=== PATIENT | female | born 1960 | race Caucasian/White ===

== ENCOUNTER 2017-06-02 11:10 | Observation (INO) | payer MEDICARE, OTHER ==
[~2017-06-02] VITALS: Ht 170.2 cm; Wt 62.7 kg
[~2017-06-02 11:10] MED LIST: ACLI400A2 INH; ALBU2.5V NPPB; ALBU8.5H5 INH; ALPR1TAB2 PO; ASPI-621 PO; ATOR40TA PO; BENZ1TAB61 PO; BUDE10.22 INH; CALC0.25 PO; CEFD300C37 PO; CEPH-368 PO; CHOL2000 PO; CIPR500T87 PO; CLON0.1T PO; CLON0.5T PO; CLOP75TA PO; CLOP75TA52 PO; CYCL-259 PO; CYCL5TAB10 PO; DEXA0.5T PO; DIAZ2TAB3 PO; DIAZ5TAB PO; DIAZ5TAB4 PO; DOCU-131 PO; DOCU100C24 PO; ETID400T2 PO; FLUD0.1T PO; FLUT1DIS3 INH; GABA300C10 PO; IPRA3AMP NEB; LEVO175T2 PO; LEVO175T5 PO; LEVO175T6 PO; LEVO25TA2 PO; LEVO500T47 PO; LIOT25TA10 PO; LIOT25TA3 PO; LIOT5TAB3 PO; LOVA20TA2 PO; METH4TAB PO; MIDO10TA PO; MIDO5TAB PO; MIRT15TA PO; MIRT15TA6 PO; MORP20CA18 PO; MORP30TA PO; MORP30TA81 PO; NICO-486 TD; OLAN20TA3 PO; OLAN20TA7 PO; OXYC-306 PO; OXYC-307 PO; OXYC1TAB8 PO; PALI6TAB3 PO; PANT40TA5 PO; PARO10TA3 PO; PARO40TA61 PO; PAXIL PO; PREG100C PO; RISP1TAB3 PO; SENN-52 PO; SERT25TA3 PO; SUCR1TAB PO; ZOLP10TA3 PO; [UNRECOGNIZED DRUG - CODE] INJ; [UNRECOGNIZED DRUG - OTHER] PO
[2017-06-02] MEDS ORDERED: GADOBUTROL 7.5 MMOL/7.5 ML PFS ONE (11:15)
[2017-06-02] MEDS ORDERED: MIDO5TAB PO (11:29)
[2017-06-02] MEDS ORDERED: ALBU8.5H8 INH (11:31)
[2017-06-02] MEDS ORDERED: SODIUM CHLORIDE 0.9% 1,000 ML IV ONE (11:37)
[2017-06-02 11:51] LABS: BASOPHILS # (AUTO) 0.03 x10^3/uL (0-0.1); BASOPHILS % (AUTO) 0 % (0-1); EOSINOPHILS # (AUTO) 0.13 x10^3/uL (0-0.4); EOSINOPHILS % (AUTO) 2 % (1-7); LYMPHOCYTES # (AUTO) 2.17 x10^3/uL (1-3.4); LYMPHOCYTES % (AUTO) 33 % (22-44); MD NO; MEAN CORPUSCULAR HEMOGLOBIN 30.8 pg (27.0-34.8); MEAN CORPUSCULAR HGB CONC 33.9 g/dL (32.4-35.8); MEAN CORPUSCULAR VOLUME 90.9 fL (80-100); MEAN PLATELET VOLUME 7.9 fL (7.4-10.4); MONOCYTES # (AUTO) 0.51 x10^3/uL (0.2-0.8); MONOCYTES % (AUTO) 8 % (2-9); NEUTROPHILS % (AUTO) 57 % (42-75); PLATELET COUNT 233 x10^3/uL (130-400); RED BLOOD COUNT 4.67 x10^6/uL (3.82-5.3); RED CELL DISTRIBUTION WIDTH 13.4 % (9.6-15.2)
[2017-06-02] MEDS ORDERED: SODIUM CHLORIDE FLUSH 10ML SYR IVF ONE (12:00)
[2017-06-02] MEDS ORDERED: SODIUM CHLORIDE 0.9% 1,000ML IVBOLUS ONE ×2 (12:00→12:30)
[2017-06-02 12:08] LABS: ALBUMIN 3.2 g/dL (3.4-5.0); ANION GAP 7 mmol/L (5-15); CALCIUM 8.6 mg/dL (8.5-10.1); CHLORIDE 108 mmol/L (98-107); CREATININE 0.63 mg/dL (0.55-1.02)
[2017-06-02 12:11] LABS: ALKALINE PHOSPHATASE 139 U/L (45-117); BILIRUBIN,TOTAL 0.3 mg/dL (0.2-1.0); TOTAL PROTEIN 6.9 g/dL (6.4-8.2); TROPONIN I < 0.015 ng/mL (0.000-0.045)
[2017-06-02 12:14] LABS: ALANINE AMINOTRANSFERASE 14 U/L (12-78)
[2017-06-02 12:22] LABS: MICROSCOPIC NOT IND
[2017-06-02 12:31] LABS: CULTURE INDICATED? NO
[2017-06-02] MEDS ORDERED: SODIUM CHLORIDE FLUSH 10ML SYR IVF PRN (13:00)
[2017-06-02] MEDS ORDERED: ONDANSETRON ODT 4 MG PO PRN (14:00)
[2017-06-02] MEDS ORDERED: OXYcodone/APAP 7.5/325MG TABLET PO PRN (14:00)
[2017-06-02] MEDS ORDERED: ONDANSETRON 2MG/ML, 2ML IVPush PRN (14:00)
[2017-06-02] MEDS ORDERED: DIAZEPAM 2 MG TABLET PO SCH (14:00)
[2017-06-02 15:04] LABS: TROPONIN I < 0.015 ng/mL (0.000-0.045)
[2017-06-02 15:48] VITALS: BP 128/82
[2017-06-02] MEDS ORDERED: GABAPENTIN 300 MG CAPSULE PO SCH (16:00)
[2017-06-02] MEDS ORDERED: CYCLOBENZAPRINE 10 MG TABLET PO SCH (16:00)
[2017-06-02] MEDS ORDERED: BENZTROPINE 1 MG TABLET PO SCH (21:00)
[2017-06-02] MEDS ORDERED: MIRTAZAPINE 15 MG TABLET PO SCH (21:00)
[2017-06-02] MEDS ORDERED: MIDODRINE 5 MG TABLET PO SCH (21:00)
[2017-06-02] MEDS ORDERED: ATORVASTATIN 20 MG TABLET PO SCH (21:00)
[2017-06-02] MEDS ORDERED: LIOTHYRONINE 25 MCG TABLET PO SCH (21:00)
[2017-06-02] MEDS ORDERED: DOCUSATE 100 MG CAPSULE PO SCH (21:00)
[2017-06-03] MEDS ORDERED: ASPIRIN 325 MG TABLET EC PO SCH (06:00)
[2017-06-03] MEDS ORDERED: OLANZAPINE 10 MG TABLET PO SCH (09:00)
== END 2017-06-02 17:01 | disposition left against medical advice (07) ==
LOC: ED 12:08 → INTOOBSV 12:51 → EDIP 12:51 → 4WST 15:18
PROVIDERS: ADMIT Internal Medicine; ATTEND Internal Medicine
DX: I95.9 Hypotension, unspecified (principal); G62.9 Polyneuropathy, unspecified; F41.9 Anxiety disorder, unspecified; E03.9 Hypothyroidism, unspecified; F32.9 Major depressive disorder, single episode, unspecified; F17.210 Nicotine dependence, cigarettes, uncomplicated; F11.20 Opioid dependence, uncomplicated; M79.7 Fibromyalgia; J44.9 Chronic obstructive pulmonary disease, unspecified; I10 Essential (primary) hypertension
CPT/HCPCS: 36415; 70450; 70553; 71045; 80053; 81003; 84484; 85025; 93005; 99285; A9585; G0378; J7030

== ENCOUNTER → 2017-08-26 | Outpatient (CLI) | payer MEDICARE ==
[~2017-08-26] MED LIST changes: +ALBU8.5H8 INH
== END | disposition home or self-care (01) ==
LOC: CFH 08:56
PROVIDERS: ATTEND Internal Medicine
DX: J84.9 Interstitial pulmonary disease, unspecified (principal); J44.9 Chronic obstructive pulmonary disease, unspecified
CPT/HCPCS: 71250

== ENCOUNTER → 2017-10-23 | Outpatient (CLI) | payer MEDICARE | END | disposition home or self-care (01) | LOC: CFH 10:00 | PROVIDERS: ATTEND Nurse Practitioner Family | DX: Z12.31 Encounter for screening mammogram for malignant neoplasm of breast (principal); J18.9 Pneumonia, unspecified organism; R91.8 Other nonspecific abnormal finding of lung field; R92.1 Mammographic calcification found on diagnostic imaging of breast | CPT/HCPCS: 71046; 77063; 77067 ==

== ENCOUNTER → 2019-11-09 | Outpatient (CLI) | payer MEDICARE ==
[~2019-11-09] MED LIST changes: -ACLI400A2 INH; +ACLI400A3 INH; -ASPI-621 PO; +ASPI81TA45 PO; -CLON0.1T PO; +CLON0.1T22 PO; +DOCU-193 PO; -DOCU100C24 PO; -IPRA3AMP NEB; +IPRA3AMP30 NEB; +LIOT25TA12 PO; -LIOT25TA3 PO; +LIOT5TAB11 PO; -LIOT5TAB3 PO; -MIDO5TAB PO; +MIDO5TAB9 PO; -MIRT15TA6 PO; +MIRT15TA94 PO; +OLAN20TA14 PO; -OLAN20TA7 PO
[2019-11-09 16:14] LABS: BASOPHILS # (AUTO) 0.03 x10^3/uL (0-0.1); BASOPHILS % (AUTO) 0 % (0-1); EOSINOPHILS # (AUTO) 0.15 x10^3/uL (0-0.4); EOSINOPHILS % (AUTO) 2 % (1-7); LYMPHOCYTES % (AUTO) 19 % (22-44); MD NO; MEAN CORPUSCULAR HEMOGLOBIN 33.2 pg (27.0-34.8); MEAN CORPUSCULAR HGB CONC 34.2 g/dL (32.4-35.8); MEAN CORPUSCULAR VOLUME 96.9 fL (80-100); MEAN PLATELET VOLUME 7.3 fL (7.4-10.4); MONOCYTES # (AUTO) 0.34 x10^3/uL (0.2-0.8); MONOCYTES % (AUTO) 4 % (2-9); NEUTROPHILS # (AUTO) 6.79 x10^3/uL (1.8-6.8); NEUTROPHILS % (AUTO) 76 % (42-75); PLATELET COUNT 308 x10^3/uL (130-400); RED BLOOD COUNT 4.37 x10^6/uL (3.82-5.3); RED CELL DISTRIBUTION WIDTH 13.5 % (9.6-15.2)
[2019-11-09 16:26] LABS: ALBUMIN 3.8 g/dL (3.4-5.0); ANION GAP 4 mmol/L (5-15); CHLORIDE 102 mmol/L (98-107)
[2019-11-09 16:30] LABS: ALANINE AMINOTRANSFERASE 13 U/L (12-78); ALKALINE PHOSPHATASE 126 U/L (45-117); BILIRUBIN,TOTAL 0.4 mg/dL (0.2-1.0); CREATININE 0.82 mg/dL (0.55-1.02); TOTAL PROTEIN 7.9 g/dL (6.4-8.2)
== END | disposition home or self-care (01) ==
LOC: CFH 11:51
PROVIDERS: ATTEND Nurse Practitioner Family
DX: Z12.2 Encounter for screening for malignant neoplasm of respiratory organs (principal); R91.8 Other nonspecific abnormal finding of lung field; F17.210 Nicotine dependence, cigarettes, uncomplicated; G89.4 Chronic pain syndrome; J44.9 Chronic obstructive pulmonary disease, unspecified; G90.9 Disorder of the autonomic nervous system, unspecified; I25.10 Atherosclerotic heart disease of native coronary artery without angina pectoris; J92.9 Pleural plaque without asbestos
CPT/HCPCS: 36415; 80053; 85025; G0297

== ENCOUNTER 2020-01-03 09:37 | Outpatient (CLI) | payer MEDICARE ==
[~2020-01-03 09:37] MED LIST changes: -PANT40TA5 PO; +PANT40TA6 PO
[2020-01-03] MEDS ORDERED: OMNIPAQUE 350 MG/ML, 75ML BOTTLE ONE (10:20)
== END 2020-01-03 23:59 | disposition home or self-care (01) ==
LOC: CFH 09:37
PROVIDERS: ATTEND Nurse Practitioner Family
DX: M19.012 Primary osteoarthritis, left shoulder (principal); R91.8 Other nonspecific abnormal finding of lung field; M94.212 Chondromalacia, left shoulder; M25.812 Other specified joint disorders, left shoulder; M25.612 Stiffness of left shoulder, not elsewhere classified; J92.9 Pleural plaque without asbestos; J84.9 Interstitial pulmonary disease, unspecified; M65.812 Other synovitis and tenosynovitis, left shoulder
CPT/HCPCS: 71260; 73221; Q9967

== ENCOUNTER → 2020-06-13 | Outpatient (CLI) | payer MEDICARE ==
[~2020-06-13] MED LIST changes: -CYCL-259 PO; +CYCL10TA2 PO; +MIRT-37 PO; -MIRT15TA PO; -OXYC-306 PO; -OXYC-307 PO; +OXYC-380 PO; +OXYC1TAB17 PO; -RISP1TAB3 PO; +RISP1TAB90 PO; +SERT-331 PO; -SERT25TA3 PO
== END | disposition home or self-care (01) ==
LOC: CFH 13:23
PROVIDERS: ATTEND Internal Medicine
DX: R91.8 Other nonspecific abnormal finding of lung field (principal); J43.2 Centrilobular emphysema; J84.10 Pulmonary fibrosis, unspecified
CPT/HCPCS: 71250

== ENCOUNTER → 2020-09-17 | Outpatient (CLI) | payer MEDICARE | END | disposition home or self-care (01) | LOC: CFH 09:38 | PROVIDERS: ATTEND Nurse Practitioner Family | DX: Z12.31 Encounter for screening mammogram for malignant neoplasm of breast (principal); M81.0 Age-related osteoporosis without current pathological fracture; M85.89 Other specified disorders of bone density and structure, multiple sites; J98.4 Other disorders of lung; R91.8 Other nonspecific abnormal finding of lung field | CPT/HCPCS: 71046; 77063; 77067; 77080 ==

== ENCOUNTER 2020-12-13 10:36 | Outpatient (CLI) | payer MEDICARE ==
[~2020-12-13 10:36] MED LIST changes: -OXYC-380 PO; +OXYC-501 PO; +OXYC1TAB16 PO; -OXYC1TAB17 PO
== END 2020-12-13 23:59 | disposition home or self-care (01) ==
LOC: CFH 10:36
PROVIDERS: ATTEND Internal Medicine
DX: T17.990A Other foreign object in respiratory tract, part unspecified in causing asphyxiation, initial encounter (principal); R91.8 Other nonspecific abnormal finding of lung field; J47.9 Bronchiectasis, uncomplicated; I25.10 Atherosclerotic heart disease of native coronary artery without angina pectoris; J92.9 Pleural plaque without asbestos; J84.9 Interstitial pulmonary disease, unspecified; X58.XXXA Exposure to other specified factors, initial encounter; Y93.89 Activity, other specified; Y92.89 Other specified places as the place of occurrence of the external cause; Y99.8 Other external cause status
CPT/HCPCS: 71250